=== PATIENT | female | born 1980 | race Caucasian/White ===

== ENCOUNTER 2018-05-14 01:38 | Inpatient (IN) | payer OTHER ==
[~2018-05-14] VITALS: Ht 162.6 cm; Wt 76.2 kg
[2018-05-14] MEDS ORDERED: PRENATAL TABLE1 EAC2 PO (10:17)
[2018-05-14] MEDS ORDERED: IRON325 MG PO (10:18)
[2018-05-16] MEDS ORDERED: Ferro-Plex CAPLET PO (12:11)
[2018-05-16] MEDS ORDERED: DOCUSATE SODIU100 MG PO (12:11)
== END 2018-05-16 12:39 | disposition home or self-care (01) | DRG 807 ==
LOC: OBS/DEL 01:38 → LDR 09:07 → OB/GYN 16:13
PROC: 10E0XZZ Delivery of Products of Conception, External Approach (ICD-10-PCS; principal; 2018-05-14)
PROC: 4A1HXCZ Monitoring of Products of Conception, Cardiac Rate, External Approach (ICD-10-PCS; 2018-05-14)
DX: O80 Encounter for full-term uncomplicated delivery (principal); Z37.0 Single live birth; Z3A.39 39 weeks gestation of pregnancy